=== PATIENT | male | born 1985 | race Caucasian/White ===

== ENCOUNTER 2019-05-30 19:06 | Emergency (ER) | payer OTHER, SELFPAY ==
[2019-05-30 19:16] VITALS: BP 132/93; PULSE 63; RESP 18; TEMP 36.8; O2SAT 97; BMI 27.2
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
[2019-05-30] MEDS: neomycin-poly-dex Op 5 mL Btl 2 DROP EYE-RIGHT (20:34)
[2019-05-30 20:58] VITALS: BP 118/80; PULSE 65; RESP 16; O2SAT 97
== END 2019-05-30 21:01 | disposition home or self-care (01) ==
PROVIDERS: Emergency Provider Nurse Practitioner Family; PCP Family Medicine
DX: T54.2X1A Toxic effect of corrosive acids and acid-like substances, accidental (unintentional), initial encounter (principal); T26.91XA Corrosion of right eye and adnexa, part unspecified, initial encounter
CPT/HCPCS: 99281